=== PATIENT | female | born 1955 | race Two or more races ===

== ENCOUNTER 2019-05-02 12:29 | Emergency (ER) | payer OTHER ==
[~2019-05-02] VITALS: Ht 160 cm; Wt 75.3 kg
--- NOTE | 2019-05-02 12:51 | NUR ---
ED Nurse Note: Pt ambulated to ed c/o low back and low abdomen pain. pt states that she has been experiencing polyuria. pt ambualted to restroom and obtained urine sample. urine sent to lab. pt denies pain. no itching, swelling, or redness report on vaginal area. Addendum: 05/02/19 at 1257 by PDELEON ED Nurse Note: Pt ambulated to ed c/o low back and low abdomen pain. pt states that she has been experiencing polyuria. pt ambualted to restroom and obtained urine sample. urine sent to lab.*pt denies vaginal pain. no itching, swelling, or redness report on vaginal area.
[2019-05-02 12:56] VITALS: BP 144/92
[2019-05-02 13:10] LABS: APPEARANCE,URINE CLEAR; BILIRUBIN, URINE NEGATIVE (NEGATIVE); GLUCOSE, URINE (UA) NEGATIVE (NEGATIVE); KETONES,URINE 1+ (NEGATIVE); LEUKOCYTE ESTERASE ,URINE 1+ (NEGATIVE); NITRITE,URINE NEGATIVE (NEGATIVE); PH,URINE 6.5 (4.5-8.0); PROTEIN,URINE 2+ (NEGATIVE); UROBILINOGEN,URINE NORMAL MG/DL (0.0-1.0)
[2019-05-02 13:16] LABS: COLOR,URINE YELLOW
[2019-05-02] MEDS ORDERED: Phenazopyridine 200mg tab ORAL ONE (13:30)
--- NOTE | 2019-05-02 14:00 | NUR ---
ED Nurse Note: pt left to CT
--- NOTE | 2019-05-02 14:10 | NUR ---
ED Nurse Note: pt returned from CT
--- NOTE | 2019-05-02 14:18 | NUR ---
ED Nurse Note: iv site established, patent and intact. blood specimen obtained; sent to lab
[2019-05-02 14:25] VITALS: BP 141/88
--- NOTE | 2019-05-02 14:38 | Diagnostic Imaging Report ---
Indication: Low back pain and lower abdominal pain with hematuria Technique: Spiral acquisitions obtained through the abdomen and pelvis. No oral or IV contrast utilized, per urinary stone protocol. Multiplanar reconstructions were generated. Total dose length product 440 mGycm. CTDIvol(s) 8 mGy. Dose reduction achieved using automated exposure control Comparison: none Findings: No renal or ureteral calculi, hydronephrosis, or hydroureter demonstrated. The bladder is unremarkable. Lack of IV contrast limits assessment of the renal parenchyma. Left kidney demonstrates an interpolar region cyst. It demonstrates an exophytic subcentimeter lesion which is too small to characterize but probably represents a cyst. No right renal parenchymal abnormality demonstrated. Lack of IV contrast limits assessment of the other solid organs. The liver is diffusely hypoattenuating, consistent with fatty change. No focal liver lesion. The gallbladder, bile ducts, pancreas, spleen, adrenals are all unremarkable. No retroperitoneal mass or adenopathy. The uterus and adnexal structures are unremarkable. What appear to be surgical clips are seen in the left side of the pelvis. No pelvic mass or adenopathy. There are a few small colonic diverticula. No evidence of diverticulitis. The appendix is normal. No small bowel distention. No free or loculated intraperitoneal gas or fluid is evident. The distal esophagus, stomach, duodenum are unremarkable. Impression: No evidence of urinary stone disease, obstructive uropathy, or other acute abnormality Fatty liver Colonic diverticulosis Small left renal cysts The CT scanner at [facility] is accredited by the [employer] and the scans are performed using protocols designed to limit radiation exposure to as low as reasonably achievable to attain images of sufficient resolution adequate for diagnostic evaluation.
--- NOTE | 2019-05-02 14:45 | Emergency Room Report ---
History of Present Illness General Chief Complaint: Female Urogenital Problems Source: Patient Present Illness HPI 63 YO female presents to the ED c/o 10/23 in severity lower abdominal pain with right sided low back pain, progressive x 3 weeks. pt. reports associated urinary frequency. She denies trauma or fall. Denies N/V/F/C, constipation or diarrhea. She denies hematuria or dysuria. She denies pelvic pain or vaginal d/ c. She denies upper abdominal tenderness or pain. She denies hx of DM. She has not taken any OTC meds in an attempt to alleviate her symptoms. She denies polydipsia. She denies CP, palpitations or SOB. Allergies: Coded Allergies: No Known Allergies (Unverified , 05/02/19) Patient History Past Medical History: see triage record Past Surgical History: none Pertinent Family History: none Now: No Reviewed Nursing Documentation: PMH: Agreed; PSxH: Agreed Nursing Documentation-PMH Hx Hypertension: Yes Review of Systems All Other Systems: negative except mentioned in HPI Physical Exam Vital Signs Date Time Temp Pulse Resp B/P (MAP) Pulse Ox O2 Delivery O2 Flow Rate FiO2 05/02/19 12:46 98.4 67 16 144/92 (109) 96 Room Air Sp02 EP Interpretation: reviewed, normal General Appearance: well appearing, no apparent distress, alert, GCS 15, non- toxic Head: normocephalic, atraumatic Eyes: bilateral eye normal inspection, bilateral eye PERRL ENT: hearing grossly normal, normal voice Neck: full range of motion Respiratory: lungs clear, normal breath sounds, speaking full sentences Cardiovascular #1: regular rate, rhythm Gastrointestinal: normal bowel sounds, non tender, soft, non-distended, no guarding Rectal: deferred Genitourinary: normal inspection, CVA tenderness (R) Musculoskeletal: back normal, normal range of motion, gait/station normal, non- tender Neurologic: alert, motor strength/tone normal, oriented x3, sensory intact, responsive, speech normal Psychiatric: judgement/insight normal Medical Decision Making PA Attestation Dr. Oden is my supervising Physician whom patient management has been discussed with. Diagnostic Impression: Primary Impression: Cystitis ER Course 63 YO female presents to the ED c/o 10/23 in severity lower abdominal pain with right sided low back pain, progressive x 3 weeks. pt. reports associated urinary frequency. She denies trauma or fall. Denies N/V/F/C, constipation or diarrhea. She denies hematuria or dysuria. She denies pelvic pain or vaginal d/ c. She denies upper abdominal tenderness or pain. She denies hx of DM. She has not taken any OTC meds in an attempt to alleviate her symptoms. She denies polydipsia. She denies CP, palpitations or SOB. Ddx considered but are not limited to UTI, cystitis, Pyelonephritis, Renal calculi, cancer, Diverticulitis, acute appy, diarrhea,UC, PUD, GE, pancreatitis , gallstone Vital signs: are WNL, pt. is afebrile H&PE are most consistent with Cystitis need to r/o UTI or stone ORDERS: -CBC, CMP, lipase: WNL - UA: notable for blood and rbc's, will rule out renal calculi. Few bacteria however no elevation in inflammatory markers and there is also equal presence of squamous cells will await reflex culture before prescribing abx. _ CT Abdomen and Pelvis : No evidence of urinary stone disease, obstructive uropathy, or other acute abnormality. Fatty liver, colonic diverticulosis and small left renal cysts are noted." Per official radiology report- Please see report for specific details. ED INTERVENTIONS: -Pyridium 200mg PO -Toradol 15mg IV -I do not identify an emergent condition at this time. With current presentation , pt. is stable for close outpatient follow up and conservative treatment. D/ w pt. to return promptly to ED with worsening or new symptoms.- Pt. verbalizes' understanding and agreement with proposed treatment plan. DISCHARGE: At this time pt. is stable for d/c to home. Will provide printed patient care instructions, and any necessary prescriptions. Care plan and follow up instructions have been discussed with the patient prior to discharge. Labs Test 05/02/19 12:53 Urine Color Yellow Urine Appearance Clear Urine pH 6.5 (4.5-8.0) Urine Specific [place] 1.015 (1.005-1.035) Urine Protein 2+ (NEGATIVE) Urine Glucose (UA) Negative (NEGATIVE) Urine Ketones 1+ (NEGATIVE) Urine Blood 5+ (NEGATIVE) Urine Nitrite Negative (NEGATIVE) Urine Bilirubin Negative (NEGATIVE) Urine Urobilinogen Normal MG/DL (0.0-1.0) Urine Leukocyte Esterase 1+ (NEGATIVE) Urine RBC 30-40 /HPF (0 - 2) Urine WBC 2-4 /HPF (0 - 2) Urine Squamous Epithelial Cells Few /LPF (NONE/OCC) Urine Bacteria Few /HPF (NONE) Urine Mucus Few /LPF (NONE/OCC) CT/MRI/US Diagnostic Results CT/MRI/US Diagnostic Results : Imaging Test Ordered: CT abdomen pelvis without contrast Impression "No evidence of urinary stone disease, obstructive uropathy or other acute abnormality, fatty liver, colonic diverticulosis, small left renal cyst." Per official radiology report- Please see report for specific details. Last Vital Signs Date Time Temp Pulse Resp B/P (MAP) Pulse Ox O2 Delivery O2 Flow Rate FiO2 05/02/19 14:25 98.4 83 16 141/88 98 Room Air Status: improved Disposition: HOME, SELF-CARE Condition: Stable Scripts Phenazopyridine Hcl* (PYRIDIUM*) 200 Mg Tablet 200 MG ORAL THREE TIMES A DAY for 3 Days, #9 TAB 0 Refills Prov: Mónica Ibanez 05/02/19 Ibuprofen* (MOTRIN*) 400 Mg Tablet 400 MG ORAL THREE TIMES A DAY, #20 TAB 0 Refills Prov: Mónica Ibanez 05/02/19 Referrals: Shaylee Shah [facility] + [facility] Patient Instructions: Back Pain, Adult, [id number] Additional Instructions: Take medications as directed. Follow up with a Primary Care Provider in 3-5 days, even if your symptoms have resolved. --Please review list of primary care clinics, if you do not already have a primary care provider Return sooner to ED if new symptoms occur, or current symptoms become worse. - Please note that this Emergency Department Report was dictated using [employer]gum sprayer technology software, occasionally this can lead to erroneous entry secondary to interpretation by the dictation equipment. Mónica Ibanez May 02, 2019 14:45
[2019-05-02] MEDS ORDERED: IBUPROFEN400 MG ORAL (14:51)
[2019-05-02] MEDS ORDERED: PHENAZOPYRIDIN200 MG ORAL (14:51)
[2019-05-02 14:57] VITALS: BP 139/87
--- NOTE | 2019-05-02 14:58 | NUR ---
ER DISCHARGE NOTE: Patient is cleared to be discharged per ERMD, pt is aox4, on room air, with stable vital signs. pt was given dc and prescription instructions, pt was able to verbalize understanding, pt id band and iv site removed without complications. pt is able to ambulate with steady gait. pt took all belongings.
[2019-05-02] MEDS ORDERED: Ketorolac 30mg Inj IV ONE (15:00)
[2019-05-02 15:03] LABS: BASOPHILS % (AUTO) 1.4 % (0.0-2.0); EOSINOPHILS % (AUTO) 3.4 % (0.0-3.0); HEMATOCRIT 42.5 % (37.0-47.0); HEMOGLOBIN 14.9 G/DL (12.0-16.0); LYMPHOCYTES % (AUTO) 35.3 % (20.0-45.0); MEAN CORPUSCULAR VOLUME 92 FL (80-99); MONOCYTES % (AUTO) 6.5 % (1.0-10.0); NEUTROPHILS % (AUTO) 53.5 % (45.0-75.0); PLATELET COUNT 246 K/UL (150-450); RED BLOOD COUNT 4.61 M/UL (4.20-5.40); RED CELL DISTRIBUTION WIDTH 10.4 % (11.6-14.8); WHITE BLOOD COUNT 10.7 K/UL (4.8-10.8)
[2019-05-02 15:58] LABS: ANION GAP 14 mmol/L (5-15); BLOOD UREA NITROGEN 23 mg/dL (7-18); CALCIUM 9.6 MG/DL (8.5-10.1); CARBON DIOXIDE 24 MMOL/L (21-32); CHLORIDE 107 MMOL/L (98-107); CREATININE 0.8 MG/DL (0.55-1.30); POTASSIUM 4.5 MMOL/L (3.5-5.1); SODIUM 144 MMOL/L (136-145)
== END 2019-05-02 14:57 | disposition home or self-care (01) ==
LOC: EMR 13:30
DX: N30.90 Cystitis, unspecified without hematuria (principal); I10 Essential (primary) hypertension
CPT/HCPCS: 36415; 74176; 80048; 81003; 83690; 85025; 96374; J1885; Z7502; 99284